=== PATIENT | female | born 1970 | race African-American/Black ===

== ENCOUNTER 2016-07-02 17:51 | Inpatient (IN) | payer MEDICAID ==
[~2016-07-02] VITALS: Ht 167.6 cm; Wt 59.4 kg
[~2016-07-02 17:51] MED LIST: ACETAMINOPHEN-1 EAC1 ORAL; ALPRAZOLAM0.25 MG ORAL; APRESOLINE50 MG ORAL; BENTYL10 MG ORAL; COLACE100 MG ORAL; HYDROCORTISON28.4 G2 TP; LISINOPRIL20 MG ORAL; NKM; NORVASC5 MG ORAL; REGLAN5 MG ORAL
[2016-07-02 17:59] VITALS: BP 224/139
[2016-07-02] MEDS ORDERED: Morphine Sulfate 4mg/ml Inj IVP ONE ×2 (18:15→21:15)
[2016-07-02 18:42] LABS: BASOPHILS % (AUTO) 1.6 % (0.0-2.0); EOSINOPHILS % (AUTO) 1.2 % (0.0-3.0); MEAN CORPUSCULAR HEMOGLOBIN 30.4 PG (27.0-31.0); MEAN CORPUSCULAR HGB CONC 33.8 G/DL (32.0-36.0); MEAN CORPUSCULAR VOLUME 90 FL (80-99); MEAN PLATELET VOLUME 6.7 FL (6.5-10.1); MONOCYTES % (AUTO) 5.9 % (1.0-10.0); NEUTROPHILS % (AUTO) 60.3 % (45.0-75.0); PLATELET COUNT 295 K/UL (150-450); RED BLOOD COUNT 4.44 M/UL (4.20-5.40); RED CELL DISTRIBUTION WIDTH 13.1 % (11.6-14.8); WHITE BLOOD COUNT 8.9 K/UL (4.8-10.8)
[2016-07-02 19:12] LABS: ALANINE AMINOTRANSFERASE 9 U/L (3-33); ALBUMIN/GLOBULIN RATIO 1.3 (1.0-2.7); ANION GAP 16 (5-15); ASPARTATE AMINO TRANSFERASE 13 U/L (5-40); CALCIUM 9.6 mg/dL (8.6-10.2); CARBON DIOXIDE 23 mEQ/L (20-30); CHLORIDE 98 mEQ/L (98-107); CREATININE 0.8 mg/dL (0.5-0.9); GLOMERULAR FILTRATION RATE > 60 mL/min (>60); HEMOLYSIS 20; LIPASE 154 U/L (< 60); POTASSIUM 3.8 mEQ/L (3.4-4.9); SODIUM 137 mEQ/L (135-145); TOTAL PROTEIN 8.3 g/dL (6.6-8.7)
[2016-07-02 19:43] LABS: APPEARANCE,URINE CLOUDY; KETONES,URINE NEGATIVE (NEGATIVE); LEUKOCYTE ESTERASE ,URINE 1+ (NEGATIVE); NITRITE,URINE NEGATIVE (NEGATIVE); PH,URINE 6 (4.5-8.0); PROTEIN,URINE NEGATIVE (NEGATIVE); UROBILINOGEN,URINE NORMAL MG/DL (0.0-1.0)
[2016-07-02 19:59] LABS: BACTERIA,URINE MODERATE /HPF; RBC,URINE 0-2 /HPF (0 - 2); SQUAMOUS EPITHELIAL CELL,UR MANY /LPF (NONE/OCC)
[2016-07-02 20:30] VITALS: BP 208/112
[2016-07-02 22:27] VITALS: BP 160/109
[2016-07-02] MEDS ORDERED: Nitroglycerin Subl 0.4mg tab (Bottle Of 25) SL PRN (22:30)
[2016-07-02] MEDS ORDERED: Mylanta II UD 30ml ORAL PRN (22:30)
[2016-07-02] MEDS ORDERED: Morphine Sulfate 2mg/ml Inj IVP PRN (22:30)
[2016-07-02] MEDS ORDERED: Miralax 17gm pkt ORAL PRN (22:30)
--- NOTE | 2016-07-02 22:35 | Emergency Room Report ---
History of Present Illness General Chief Complaint: Abdominal Pain Source: Patient, EMS Present Illness HPI 45-year-old female since ED complaining of abdominal pain. Patient states pain started today. Pain is sharp, epigastric, 10 of 10, radiating to the back. No other aggravating or relieving factors. Denies fevers chills. Denies chest pain or shortness of breath. Patient has history of pancreatitis. She states her abdomen is swollen. Denies nausea or vomiting Allergies: Coded Allergies: PENICILLIN G (Unverified Allergy, Unknown, 07/02/16) PENICILLINS (Verified Allergy, Unknown, 06/29/15) Patient History Past Medical History: HTN, asthma Past Surgical History: none Pertinent Family History: none Social History: Denies: alcohol use, drug use, smoking Last Menstrual Period: 05/16/16 Now: No Immunizations: UTD Reviewed Nursing Documentation: PMH: Agreed, PSxH: Agreed Nursing Documentation-PMH Past Medical History: No History, Except For Hx Cardiac Problems: Yes Hx Hypertension: Yes Hx Asthma: Yes Hx Cancer: No Hx Neurological Problems: No Review of Systems All Other Systems: negative except mentioned in HPI Physical Exam Vital Signs Date Time Temp Pulse Resp B/P Pulse Ox O2 Delivery O2 Flow Rate FiO2 07/02/16 17:46 96.3 92 16 204/177 100 Room Air Sp02 EP Interpretation: reviewed, normal General Appearance: no apparent distress, alert, GCS 15, non-toxic Head: normocephalic, atraumatic Eyes: bilateral eye PERRL, bilateral eye normal inspection ENT: hearing grossly normal, normal pharynx, no angioedema, normal voice Neck: full range of motion, supple/symm/no masses Respiratory: chest non-tender, lungs clear, normal breath sounds, speaking full sentences Cardiovascular #1: regular rate, rhythm, no edema Cardiovascular #2: 2+ carotid (R), 2+ carotid (L), 2+ radial (R), 2+ radial (L) , 2+ dorsalis pedis (R), 2+ dorsalis pedis (L) Gastrointestinal: normal bowel sounds, soft, no rebound, distended, tenderness Rectal: deferred Genitourinary: normal inspection, no CVA tenderness Musculoskeletal: back normal, gait/station normal, normal range of motion, non- tender Neurologic: alert, oriented x3, responsive, motor strength/tone normal, sensory intact, speech normal Psychiatric: judgement/insight normal, memory normal, mood/affect normal, no suicidal/homicidal ideation Reflexes: 3+ bicep (R), 3+ bicep (L), 3+ tricep (R), 3+ tricep (L), 3+ knee (R) , 3+ knee (L) Skin: normal color, no rash, warm/dry, well hydrated Lymphatic: no adenopathy Medical Decision Making Diagnostic Impression: Primary Impression: Pancreatitis Qualified Codes: K85.90 - Acute pancreatitis without necrosis or infection, unspecified Additional Impression: Hypertension Qualified Codes: I15.9 - Secondary hypertension, unspecified ER Course Hospital Course 45-year-old female presents to ED with abdominal pain Differential diagnoses include: BPH, cystitis, pyelonephritis, kidney stone Clinical course Patient placed on stretcher. ekg monitor. After initial history and physical I ordered labs, IV fluids, UA, pain medication and CT scan Labs - no leukocytosis, Hb/Hct stable. electrolytes ok. Lipase > 154 CT abdomen and pelvis - no acute process patient BP elevated; improved with hydraalzine Case discussed with Dr. Thompson and he agreed to accept the patient to his service for further care and support I feel this is a highly complex case requiring extensive working including EKG/ Rhythm strip, Xray/CT/US, Blood/urine lab work, repeat exams while in ED, and administration of strong opiates/narcotics for pain control, admission to hospital or close patient follow up. Diagnosis - acute pancreatitis Patient admitted to floor in serious condition Labs Test 07/02/16 18:26 07/02/16 19:06 White Blood Count 8.9 K/UL (4.8-10.8) Red Blood Count 4.44 M/UL (4.20-5.40) Hemoglobin 13.5 G/DL (12.0-16.0) Hematocrit 39.9 % (37.0-47.0) Mean Corpuscular Volume 90 FL (80-99) Mean Corpuscular Hemoglobin 30.4 PG (27.0-31.0) Mean Corpuscular Hemoglobin Concent 33.8 G/DL (32.0-36.0) Red Cell Distribution Width 13.1 % (11.6-14.8) Platelet Count 295 K/UL (150-450) Mean Platelet Volume 6.7 FL (6.5-10.1) Neutrophils (%) (Auto) 60.3 % (45.0-75.0) Lymphocytes (%) (Auto) 31.0 % (20.0-45.0) Monocytes (%) (Auto) 5.9 % (1.0-10.0) Eosinophils (%) (Auto) 1.2 % (0.0-3.0) Basophils (%) (Auto) 1.6 % (0.0-2.0) Sodium Level 137 mEQ/L (135-145) Potassium Level 3.8 mEQ/L (3.4-4.9) Chloride Level 98 mEQ/L (98-107) Carbon Dioxide Level 23 mEQ/L (20-30) Anion Gap 16 (5-15) Blood Urea Nitrogen 10 mg/dL (7-23) Creatinine 0.8 mg/dL (0.5-0.9) Estimat Glomerular Filtration Rate > 60 mL/min (>60) Glucose Level 122 mg/dL (74-106) Calcium Level 9.6 mg/dL (8.6-10.2) Total Bilirubin < 0.2 mg/dL (0.0-1.2) Aspartate Amino Transf (AST/SGOT) 13 U/L (5-40) Alanine Aminotransferase (ALT/SGPT) 9 U/L (3-33) Alkaline Phosphatase 70 U/L (35-104) Total Protein 8.3 g/dL (6.6-8.7) Albumin 4.7 g/dL (3.5-5.2) Globulin 3.6 g/dL Albumin/Globulin Ratio 1.3 (1.0-2.7) Lipase 154 U/L (< 60) Urine Color Pale yellow Urine Appearance Cloudy Urine pH 6 (4.5-8.0) Urine Specific [place] 1.025 (1.005-1.035) Urine Protein Negative (NEGATIVE) Urine Glucose (UA) Negative (NEGATIVE) Urine Ketones Negative (NEGATIVE) Urine Occult Blood Negative (NEGATIVE) Urine Nitrite Negative (NEGATIVE) Urine Bilirubin Negative (NEGATIVE) Urine Urobilinogen Normal MG/DL (0.0-1.0) Urine Leukocyte Esterase 1+ (NEGATIVE) Urine RBC 0-2 /HPF (0 - 2) Urine WBC 2-4 /HPF (0 - 2) Urine Squamous Epithelial Cells Many /LPF (NONE/OCC) Urine Bacteria Moderate /HPF (NONE) CT/MRI/US Diagnostic Results CT/MRI/US Diagnostic Results : Imaging Test Ordered: CT A/P Impression no acute process Last Vital Signs Date Time Temp Pulse Resp B/P Pulse Ox O2 Delivery O2 Flow Rate FiO2 07/02/16 22:11 198/138 07/02/16 21:44 98.8 07/02/16 20:30 65 18 100 Room Air Status: improved Disposition: ADMITTED INPATIENT Condition: Serious Referrals: [facility],REFERRING (PCP) CLARA ARORA M.D. Jul 02, 2016 22:35
[2016-07-02] MEDS ORDERED: HYDROmorphone 1mg/ml Carpuject IVP ONE (23:00)
[2016-07-03] VITALS: BP_SYST 155; BP_SYST 184; BP_DIAS 93; BP_DIAS 97
[2016-07-03] MEDS: ALPRAZolam 0.25mg tab ORAL PRN ×2 (00:44→08:11)
[2016-07-03] MEDS: D5 1/2NS 1,000 ML IV SCH ×3 (00:44→11:54)
[2016-07-03] MEDS: HydrALAZINE 50mg tab ORAL SCH ×5 (00:44→21:05)
[2016-07-03 04:00] VITALS: BP 164/100
--- NOTE | 2016-07-03 07:20 | History and Physical ---
History of Present Illness General Date patient seen: Jul 03, 2016 Time patient seen: 07:10 Reason for Hospitalization: Abdominal Pain Present Illness HPI 45 y/old female came to ED c/o sharp, radiating to the back abdominal pain, rated 7/10 on a scale 1 to 10 Reported that her abdomen swollen denies fevers, chills denies n/v/diarrhea no CP, no SOB no [id number] trauma, injury patient reported hx of pancreatitis in the past workup in ED revealed no leukocytoses, stable lytes, lipase 154 CT AP revealed acute pancreatitis, no pseudocyst, no abscess, no necrosis, non = dilated GB, fibroid uterus patient was medicated for pain patient was transferred to [facility] floor for further management Allergies: Coded Allergies: PENICILLIN G (Unverified Allergy, Unknown, 07/02/16) PENICILLINS (Verified Allergy, Unknown, 06/29/15) Medication History Scheduled Amlodipine Besylate (Norvasc), 10 MG ORAL DAILY Docusate Sodium* (Colace*), 100 MG ORAL TWICE A DAY Hydralazine HCl (Hydralazine HCl), 25 MG ORAL Q6HR Hydrocortisone/Aloe Vera (Hydrocortisone Plus 1% Cream), 28.4 GM TP BID Lisinopril (Lisinopril*), 40 MG ORAL DAILY No Known Medications* (NKM - No Known Medications*), 0 ., (Reported) Scheduled PRN Acetaminophen With Codeine (T#3) (Tylenol #3 Tab*), 1 TAB ORAL Q6HR PRN for For Pain Alprazolam* (Xanax*), 0.25 MG ORAL THREE TIMES A DAY PRN for anxiety Dicyclomine Hcl* (Bentyl*), 10 MG ORAL FOUR TIMES A DAY PRN Metoclopramide Hcl* (Reglan*), 5 MG ORAL EVERY 6 HOURS PRN Patient History Healthcare decision maker self Resuscitation status Full Code Advanced Directive on File No Past Medical/Surgical History Past Medical/Surgical History: (1) Smoker (2) Pancreatitis (3) Hypertension (4) Anemia Review of Systems Constitutional: Reports: malaise Eye: Reports: no symptoms ENT: Reports: no symptoms Respiratory: Reports: other - asthma mild Cardiovascular: Reports: other - HTN Gastrointestinal: Reports: see HPI Genitourinary: Reports: other - hx of UTI Musculoskeletal: Reports: no symptoms Psychiatric: Reports: no symptoms Neurological: Reports: no symptoms Endocrine: Reports: no symptoms Physical Exam General Appearance: WD/WN, no apparent distress, alert Lines, tubes and drains: peripheral HEENT: normocephalic, atraumatic, anicteric Neck: non-tender, supple Respiratory/Chest: chest wall non-tender, lungs clear, normal breath sounds, no respiratory distress Cardiovascular/Chest: normal peripheral pulses, normal rate, regular rhythm, no JVD Abdomen: normal bowel sounds, soft - TTP RUQ, less LUQ, no rebound, no guarding , no organomegaly Extremities: normal range of motion, non-tender, no calf tenderness, normal capillary refill 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, no motor/sensory deficits, alert, oriented x 3, responsive, normal mood/affect Musculoskeletal: normal muscle bulk Last 24 Hour Vital Signs Date Time Temp Pulse Resp B/P Pulse Ox O2 Delivery O2 Flow Rate FiO2 07/03/16 04:55 160/100 07/03/16 04:00 97.7 95 19 164/100 100 Room Air 07/03/16 00:44 187/109 07/03/16 00:00 97.3 96 21 155/93 98 Room Air 07/03/16 00:00 97.3 104 19 184/97 98 Room Air 07/02/16 23:06 98.8 82 16 160/109 100 Room Air 07/02/16 22:27 98.8 82 16 160/109 100 Room Air 07/02/16 22:11 198/138 07/02/16 21:44 98.8 07/02/16 20:30 98.8 65 18 208/112 100 Room Air 07/02/16 17:59 98.8 93 25 224/139 100 Room Air 07/02/16 17:46 96.3 92 16 204/177 100 Room Air Intake and Output 07/02/16 07/03/16 18:59 06:59 Output Total 100 ml Balance -100 ml Output Urine Total 100 ml # Voids 8 Laboratory Tests Test 07/02/16 18:26 07/02/16 19:06 White Blood Count 8.9 K/UL (4.8-10.8) Red Blood Count 4.44 M/UL (4.20-5.40) Hemoglobin 13.5 G/DL (12.0-16.0) Hematocrit 39.9 % (37.0-47.0) Mean Corpuscular Volume 90 FL (80-99) Mean Corpuscular Hemoglobin 30.4 PG (27.0-31.0) Mean Corpuscular Hemoglobin Concent 33.8 G/DL (32.0-36.0) Red Cell Distribution Width 13.1 % (11.6-14.8) Platelet Count 295 K/UL (150-450) Mean Platelet Volume 6.7 FL (6.5-10.1) Neutrophils (%) (Auto) 60.3 % (45.0-75.0) Lymphocytes (%) (Auto) 31.0 % (20.0-45.0) Monocytes (%) (Auto) 5.9 % (1.0-10.0) Eosinophils (%) (Auto) 1.2 % (0.0-3.0) Basophils (%) (Auto) 1.6 % (0.0-2.0) Sodium Level 137 mEQ/L (135-145) Potassium Level 3.8 mEQ/L (3.4-4.9) Chloride Level 98 mEQ/L (98-107) Carbon Dioxide Level 23 mEQ/L (20-30) Anion Gap 16 (5-15) H Blood Urea Nitrogen 10 mg/dL (7-23) Creatinine 0.8 mg/dL (0.5-0.9) Estimat Glomerular Filtration Rate > 60 mL/min (>60) Glucose Level 122 mg/dL (74-106) H Calcium Level 9.6 mg/dL (8.6-10.2) Total Bilirubin < 0.2 mg/dL (0.0-1.2) Aspartate Amino Transf (AST/SGOT) 13 U/L (5-40) Alanine Aminotransferase (ALT/SGPT) 9 U/L (3-33) Alkaline Phosphatase 70 U/L (35-104) Total Protein 8.3 g/dL (6.6-8.7) Albumin 4.7 g/dL (3.5-5.2) Globulin 3.6 g/dL Albumin/Globulin Ratio 1.3 (1.0-2.7) Lipase 154 U/L (< 60) H Urine Color Pale yellow Urine Appearance Cloudy Urine pH 6 (4.5-8.0) Urine Specific [place] 1.025 (1.005-1.035) Urine Protein Negative (NEGATIVE) Urine Glucose (UA) Negative (NEGATIVE) Urine Ketones Negative (NEGATIVE) Urine Occult Blood Negative (NEGATIVE) Urine Nitrite Negative (NEGATIVE) Urine Bilirubin Negative (NEGATIVE) Urine Urobilinogen Normal MG/DL (0.0-1.0) Urine Leukocyte Esterase 1+ (NEGATIVE) H Urine RBC 0-2 /HPF (0 - 2) Urine WBC 2-4 /HPF (0 - 2) Urine Squamous Epithelial Cells Many /LPF (NONE/OCC) H Urine Bacteria Moderate /HPF (NONE) H Height (Feet): 5 Height (Inches): 6.00 Weight (Pounds): 131 Medications Current Medications Medications (Trade) Dose Ordered Sig/Fátima Route PRN Reason Start Time Stop Time Status Last Admin Dose Admin Acetaminophen (Tylenol) 650 mg Q4H PRN ORAL fever 07/02/16 22:30 08/01/16 22:29 Al Hydroxide/Mg Hydroxide (Mylanta II) 30 ml Q6H PRN ORAL dyspepsia 07/02/16 22:30 08/01/16 22:29 Alprazolam (Xanax) 0.25 mg THREE TIMES A DAY PRN ORAL anxiety 07/02/16 22:30 07/09/16 22:29 07/03/16 00:44 Amlodipine Besylate (Norvasc) 10 mg DAILY ORAL 07/03/16 09:00 08/02/16 08:59 Dextrose (Dextrose 50%) STAT PRN IV Hypoglycemia 07/02/16 22:30 08/01/16 22:29 Dextrose/Sodium Chloride (D5 0.45% NS) 1,000 ml @ 75 mls/hr [id number] IV 07/02/16 17:40 08/01/16 17:39 07/03/16 00:44 Diphenhydramine HCl (Benadryl) 25 mg Q6H PRN ORAL Itching/Pruritis 07/02/16 22:30 08/01/16 22:29 Heparin Sodium (Porcine) (Heparin 5000 units/ml) 5,000 units EVERY 12 HOURS SUBQ 07/03/16 09:00 08/02/16 08:59 Hydralazine HCl (Apresoline) 25 mg Q6HR ORAL 07/03/16 00:00 08/02/16 00:00 07/03/16 04:55 Lisinopril 40 mg 40 mg DAILY ORAL 07/03/16 09:00 08/02/16 08:59 Morphine Sulfate (Morphine Sulfate) 2 mg EVERY 4 HOURS PRN IVP severe Pain (Pain Scale 7-10) 07/02/16 22:30 07/09/16 22:29 07/03/16 04:56 Nitroglycerin (Ntg) 0.4 mg Q5M X 3 DOSES PRN SL Prn Chest Pain 07/02/16 22:30 08/01/16 22:29 Ondansetron HCl (Zofran) 4 mg Q6H PRN IVP Nausea & Vomiting 07/02/16 22:30 08/01/16 22:29 Polyethylene Glycol (Miralax) 17 gm HSPRN PRN ORAL Constipation 07/02/16 22:30 08/01/16 22:29 Temazepam (Restoril) 15 mg HSPRN PRN ORAL Insomnia 07/02/16 22:30 07/09/16 22:29 Assessment/Plan Assessment/Plan ASSESSMENT acute pancreatitis abdominal pain ? hx of chronic pancreatitis HTN emergency PLAN OF CARE [facility] floor IVF NPO initially, start on CL ( discussed with GI) , monitor tolerance and advance as tolerated pain management trend lipase amylase GI consult BP management with multiple regimen: RADHA, CCB and Hydralazine, not controlled since initial presentation, increase Hydralazine dose ( already on max Norvasc and Lisinopril) , add Clonidine prn urine drug screen on awake counselor to stop smoking DVT prophylaxis bowel regimen case discussed and evaluated [facility] superv[facility]Laura NP Jul 03, 2016 07:20
[2016-07-03 08:00] VITALS: BP 172/110
[2016-07-03] MEDS ORDERED: Morphine Sulfate 2mg/ml Inj IVP PRN (08:00)
[2016-07-03] MEDS: Lisinopril 20mg tab ORAL SCH (08:12)
[2016-07-03] MEDS: Heparin 5000 units/ml inj SUBQ SCH ×2 (08:21→21:10)
--- NOTE | 2016-07-03 08:53 | General Progress Note ---
Assessment/Plan Problem List: (1) Pancreatitis ICD Codes: K85.9 - Acute pancreatitis, unspecified SNOMED: 96699749 Qualifiers: Qualified Codes: K85.90 - Acute pancreatitis without necrosis or infection, unspecified (2) ETOH abuse ICD Codes: F10.10 - Alcohol abuse, uncomplicated SNOMED: 54378978, 08657935 Assessment/Plan iv fluids pain control fu labs thiamine fu final ct clears Subjective ROS Limited/Unobtainable: Yes Allergies: Coded Allergies: PENICILLIN G (Unverified Allergy, Unknown, 07/02/16) PENICILLINS (Verified Allergy, Unknown, 06/29/15) Subjective abd pain Objective Last 24 Hour Vital Signs Date Time Temp Pulse Resp B/P Pulse Ox O2 Delivery O2 Flow Rate FiO2 07/03/16 08:12 160/100 07/03/16 08:11 95 160/100 07/03/16 04:55 160/100 07/03/16 04:00 97.7 95 19 164/100 100 Room Air 07/03/16 00:44 187/109 07/03/16 00:00 97.3 96 21 155/93 98 Room Air 07/03/16 00:00 97.3 104 19 184/97 98 Room Air 07/02/16 23:06 98.8 82 16 160/109 100 Room Air 07/02/16 22:27 98.8 82 16 160/109 100 Room Air 07/02/16 22:11 198/138 07/02/16 21:44 98.8 07/02/16 20:30 98.8 65 18 208/112 100 Room Air 07/02/16 17:59 98.8 93 25 224/139 100 Room Air 07/02/16 17:46 96.3 92 16 204/177 100 Room Air Intake and Output 07/02/16 07/03/16 18:59 06:59 Output Total 100 ml Balance -100 ml Output Urine Total 100 ml # Voids 8 Laboratory Tests 07/02/16 18:26: White Blood Count 8.9, Red Blood Count 4.44, Hemoglobin 13.5, Hematocrit 39.9, Mean Corpuscular Volume 90, Mean Corpuscular Hemoglobin 30.4, Mean Corpuscular Hemoglobin Concent 33.8, Red Cell Distribution Width 13.1, Platelet Count 295, Mean Platelet Volume 6.7, Neutrophils (%) (Auto) 60.3, Lymphocytes (%) (Auto) 31.0, Monocytes (%) (Auto) 5.9, Eosinophils (%) (Auto) 1.2, Basophils (%) (Auto ) 1.6, Sodium Level 137, Potassium Level 3.8, Chloride Level 98, Carbon Dioxide Level 23, Anion Gap 16H, Blood Urea Nitrogen 10, Creatinine 0.8, Estimat Glomerular Filtration Rate > 60, Glucose Level 122H, Calcium Level 9.6, Total Bilirubin < 0.2, Aspartate Amino Transf (AST/SGOT) 13, Alanine Aminotransferase (ALT/SGPT) 9, Alkaline Phosphatase 70, Total Protein 8.3, Albumin 4.7, Globulin 3.6, Albumin/Globulin Ratio 1.3, Lipase 154H 07/02/16 19:06: Urine Color Pale yellow, Urine Appearance Cloudy, Urine pH 6, Urine Specific [place] 1.025, Urine Protein Negative, Urine Glucose (UA) Negative, Urine Ketones Negative, Urine Occult Blood Negative, Urine Nitrite Negative, Urine Bilirubin Negative, Urine Urobilinogen Normal, Urine Leukocyte Esterase 1+H, Urine RBC 0-2, Urine WBC 2-4, Urine Squamous Epithelial Cells ManyH, Urine Bacteria ModerateH Height (Feet): 5 Height (Inches): 6.00 Weight (Pounds): 131 General Appearance: alert EENT: normal ENT inspection Neck: supple Cardiovascular: normal rate Respiratory/Chest: lungs clear Abdomen: soft, tender Extremities: non-tender SUSANA ANDREW Jul 03, 2016 08:53
--- NOTE | 2016-07-03 09:25 | Diagnostic Imaging Report ---
Indication: Abdominal pain Technique: CT of the abdomen and pelvis utilizing automated exposure control with intravenous and oral contrast. Venous scanning performed. CT dose: Total DLP 955 mGycm; CTDI vol 18.2 mGy Comparison: None Findings: Lung bases are clear. Liver, adrenal glands, kidneys and spleen. No CT evident gallstones are seen. There is trace apparent stranding adjacent to the pancreatic head. The small bowel loops are normal in caliber. There is no appendicitis. A few colonic diverticula are noted. Multiple uterine masses are seen measuring up to 5.5 cm. Bladder is grossly unremarkable. Atherosclerotic changes are seen. The abdominal aorta is normal in caliber. Degenerative changes of the spine are noted. Impression: Questionable trace stranding adjacent to the pancreatic head. Correlation with pancreatic enzymes recommended as subtle pancreatitis not completely excluded. Followup as indicated. Uterine masses suggestive of fibroids. Correlation with ultrasound recommended as indicated. Atherosclerotic changes. Other findings as above. Findings discussed with Dr. Culver 07/03/16 at [address] scanner at [facility] is accredited by the [employer] and the scans are performed using protocols designed to limit radiation exposure to as low as reasonably achievable to attain images of sufficient resolution adequate for diagnostic evaluation.
[2016-07-03] MEDS ORDERED: Morphine Sulfate 4mg/ml Inj IVP PRN (10:45)
[2016-07-03] MEDS ORDERED: Morphine Sulfate 2mg/ml Inj IVP ONE (10:45)
[2016-07-03 11:40] LABS: EOSINOPHILS % (AUTO) 0.3 % (0.0-3.0); MEAN CORPUSCULAR HEMOGLOBIN 29.7 PG (27.0-31.0); MEAN CORPUSCULAR HGB CONC 32.9 G/DL (32.0-36.0); MEAN CORPUSCULAR VOLUME 90 FL (80-99); MEAN PLATELET VOLUME 6.9 FL (6.5-10.1); MONOCYTES % (AUTO) 4.4 % (1.0-10.0); NEUTROPHILS % (AUTO) 79.3 % (45.0-75.0); PLATELET COUNT 310 K/UL (150-450); RED BLOOD COUNT 4.58 M/UL (4.20-5.40); WHITE BLOOD COUNT 11.1 K/UL (4.8-10.8)
[2016-07-03 12:00] VITALS: BP 162/101
[2016-07-03 12:05] LABS: ALANINE AMINOTRANSFERASE 10 U/L (3-33); AMYLASE 121 U/L (10-110); ANION GAP 17 (5-15); ASPARTATE AMINO TRANSFERASE 13 U/L (5-40); CALCIUM 9.2 mg/dL (8.6-10.2); CARBON DIOXIDE 20 mEQ/L (20-30); CHLORIDE 102 mEQ/L (98-107); CREATININE 0.7 mg/dL (0.5-0.9); GLOMERULAR FILTRATION RATE > 60 mL/min (>60); HEMOLYSIS 4; LIPASE 131 U/L (< 60); POTASSIUM 3.9 mEQ/L (3.4-4.9); SODIUM 139 mEQ/L (135-145); TOTAL PROTEIN 7.9 g/dL (6.6-8.7)
[2016-07-03 16:00] VITALS: BP 155/98
[2016-07-03 20:00] VITALS: BP 167/108
[2016-07-04] VITALS: BP 155/104
[2016-07-04 04:00] VITALS: BP 150/103
[2016-07-04] MEDS: HydrALAZINE 50mg tab ORAL SCH ×3 (05:39→21:46)
[2016-07-04] MEDS: D5 1/2NS 1,000 ML IV SCH ×2 (06:12→19:43)
[2016-07-04 07:57] VITALS: BP 157/92
[2016-07-04 07:57] LABS: CHOLESTEROL/HDL RATIO 3.4 (3.3-4.4)
[2016-07-04] MEDS: Lisinopril 20mg tab ORAL SCH (08:20)
[2016-07-04] MEDS: Heparin 5000 units/ml inj SUBQ SCH ×2 (08:27→21:47)
[2016-07-04] MEDS: DiphenhydrAMINE & Zinc 28g Cream TOPIC PRN ×2 (10:41→21:48)
[2016-07-04 12:05] VITALS: BP 166/98
--- NOTE | 2016-07-04 12:13 | GI Progress Note ---
Assessment/Plan Problems: (1) ETOH abuse ICD Codes: F10.10 - Alcohol abuse, uncomplicated SNOMED: 58461724, 22738815 (2) Anemia ICD Codes: D64.9 - Anemia, unspecified SNOMED: 065518989 (3) Hypertension ICD Codes: I10 - Essential (primary) hypertension SNOMED: 52170269 Qualifiers: Qualified Codes: I15.9 - Secondary hypertension, unspecified (4) Pancreatitis ICD Codes: K85.9 - Acute pancreatitis, unspecified SNOMED: 39878906 Qualifiers: Qualified Codes: K85.90 - Acute pancreatitis without necrosis or infection, unspecified (5) Constipation ICD Codes: K59.00 - Constipation, unspecified SNOMED: 42664738 (6) Abdominal pain ICD Codes: R10.9 - Unspecified abdominal pain SNOMED: 47868576, 574015252 Status: stable Status Narrative Discussed with Dr. Epperson. Assessment/Plan ok for DC per GI standpoint lipase WNL adv regular diet after U/S iv fluids pain control fu labs Subjective Gastrointestinal/Abdominal: Reports: abdominal pain Objective Last 24 Hour Vital Signs Date Time Temp Pulse Resp B/P Pulse Ox O2 Delivery O2 Flow Rate FiO2 07/04/16 12:05 97.0 109 18 166/98 96 Room Air 07/04/16 08:20 157/92 07/04/16 08:19 112 157/92 07/04/16 07:57 97.0 112 18 157/92 97 Room Air 07/04/16 07:38 97.3 07/04/16 05:39 159/103 07/04/16 04:00 97.3 87 18 150/103 99 Room Air 07/04/16 00:00 97.5 101 18 155/104 98 Room Air 07/03/16 21:05 167/108 07/03/16 20:00 97.3 108 20 167/108 100 Room Air 07/03/16 16:00 97.9 100 20 155/98 100 Room Air 07/03/16 14:00 162/101 07/03/16 12:34 162/101 Intake and Output 07/03/16 07/04/16 19:00 07:00 Intake Total 840 ml 850 ml Output Total 400 ml Balance 840 ml 450 ml Intake Oral 240 ml 100 ml IV Total 600 ml 750 ml Output Urine Total 400 ml # Voids 2 2 Laboratory Tests Test 07/04/16 05:00 07/04/16 06:00 Urine Opiates Screen Positive (NEGATIVE) H Urine Barbiturates Screen Negative (NEGATIVE) Phencyclidine (PCP) Screen Negative (NEGATIVE) Urine Amphetamines Screen Negative (NEGATIVE) Urine Benzodiazepines Screen Positive (NEGATIVE) H Urine Cocaine Screen Negative (NEGATIVE) Urine Marijuana (THC) Screen Positive (NEGATIVE) H Triglycerides Level 98 mg/dL (< 150) Cholesterol Level 126 mg/dL (< 200) LDL Cholesterol 69 mg/dL (60-99) HDL Cholesterol 37 mg/dL (> 60) Cholesterol/HDL Ratio 3.4 (3.3-4.4) Amylase Level 86 U/L (10-110) Lipase 60 U/L (< 60) Height (Feet): 5 Height (Inches): 6.00 Weight (Pounds): 131 General Appearance: alert Cardiovascular: normal rate, tachycardia Respiratory/Chest: normal breath sounds, no respiratory distress Abdominal Exam: normal bowel sounds, non tender, soft Extremities: normal range of motion Monique Dc N.P. Jul 04, 2016 12:13
--- NOTE | 2016-07-04 15:01 | Diagnostic Imaging Report ---
Indication:Abdominal pain Technique: Grayscale and duplex Doppler imaging of the abdomen performed. Comparison: None Findings: The liver, demonstrated part of the pancreas, gallbladder, aorta and IVC, both kidneys, spleen appear unremarkable. There is no biliary ductal dilatation identified. CBD is between 4 and 5 mm in diameter. Doppler evaluation of the main portal vein shows patency. There is no ascites. No hydronephrosis seen. Impression: Negative abdominal ultrasound.
[2016-07-04 16:09] VITALS: BP 177/113
--- NOTE | 2016-07-04 17:20 | Pulmonology Progress Note ---
Assessment/Plan Problems: (1) Pancreatitis (2) Hypertension (3) ETOH abuse Assessment/Plan start diet pain control dc home in am Subjective ROS Limited/Unobtainable: No Constitutional: Reports: no symptoms HEENT: Repors: no symptoms Respiratory: Reports: no symptoms Cardiovascular: Reports: no symptoms Gastrointestinal/Abdominal: Reports: no symptoms Allergies: Coded Allergies: PENICILLIN G (Unverified Allergy, Unknown, 07/02/16) PENICILLINS (Verified Allergy, Unknown, 06/29/15) Objective Last 24 Hour Vital Signs Date Time Temp Pulse Resp B/P Pulse Ox O2 Delivery O2 Flow Rate FiO2 07/04/16 16:09 98.2 114 19 177/113 100 Room Air 07/04/16 16:03 177/113 07/04/16 15:38 97.0 07/04/16 14:24 166/90 07/04/16 12:05 97.0 109 18 166/98 96 Room Air 07/04/16 08:20 157/92 07/04/16 08:19 112 157/92 07/04/16 07:57 97.0 112 18 157/92 97 Room Air 07/04/16 05:39 159/103 07/04/16 04:00 97.3 87 18 150/103 99 Room Air 07/04/16 00:00 97.5 101 18 155/104 98 Room Air 07/03/16 21:05 167/108 07/03/16 20:00 97.3 108 20 167/108 100 Room Air Intake and Output 07/03/16 07/04/16 19:00 07:00 Intake Total 840 ml 850 ml Output Total 400 ml Balance 840 ml 450 ml Intake Oral 240 ml 100 ml IV Total 600 ml 750 ml Output Urine Total 400 ml # Voids 2 2 General Appearance: WD/WN HEENT: normocephalic, atraumatic Respiratory/Chest: chest wall non-tender, lungs clear Cardiovascular: normal peripheral pulses, normal rate Abdomen: normal bowel sounds, no organomegaly Extremities: no cyanosis Skin: no rash Microbiology Date/Time Source Procedure Growth Status 07/02/16 19:06 Urine,Clean Catch Urine Culture - Final Mixed Gram Positive Organism Complete Laboratory Tests 07/04/16 05:00: Urine Opiates Screen PositiveH, Urine Barbiturates Screen Negative, Phencyclidine (PCP) Screen Negative, Urine Amphetamines Screen Negative, Urine Benzodiazepines Screen PositiveH, Urine Cocaine Screen Negative, Urine Marijuana (THC) Screen PositiveH 07/04/16 06:00: Triglycerides Level 98, Cholesterol Level 126, LDL Cholesterol 69, HDL Cholesterol 37, Cholesterol/HDL Ratio 3.4, Amylase Level 86, Lipase 60 Current Medications Medications (Trade) Dose Ordered Sig/Fátima Route PRN Reason Start Time Stop Time Status Last Admin Dose Admin Acetaminophen (Tylenol) 650 mg Q4H PRN ORAL fever 07/02/16 22:30 08/01/16 22:29 Al Hydroxide/Mg Hydroxide (Mylanta II) 30 ml Q6H PRN ORAL dyspepsia 07/02/16 22:30 08/01/16 22:29 Alprazolam (Xanax) 0.25 mg THREE TIMES A DAY PRN ORAL anxiety 07/02/16 22:30 07/09/16 22:29 07/03/16 08:11 Amlodipine Besylate (Norvasc) 10 mg DAILY ORAL 07/03/16 09:00 08/02/16 08:59 07/04/16 08:19 Clonidine HCl (Catapres) 0.1 mg Q8H PRN ORAL sbp above 160 07/03/16 09:15 08/02/16 09:14 07/04/16 16:03 Dextrose (Dextrose 50%) STAT PRN IV Hypoglycemia 07/02/16 22:30 08/01/16 22:29 Dextrose/Sodium Chloride (D5 0.45% NS) 1,000 ml @ 75 mls/hr [id number] IV 07/02/16 17:40 08/01/16 17:39 07/04/16 06:12 Diphenhydramine HCl (Benadryl Cream) 1 applic THREE TIMES A DAY PRN TOPIC Itching 07/04/16 09:00 08/03/16 08:59 07/04/16 10:41 Diphenhydramine HCl (Benadryl) 25 mg Q6H PRN ORAL Itching/Pruritis 07/02/16 22:30 08/01/16 22:29 Heparin Sodium (Porcine) (Heparin 5000 units/ml) 5,000 units EVERY 12 HOURS SUBQ 07/03/16 09:00 08/02/16 08:59 07/04/16 08:27 Hydralazine HCl (Apresoline) 50 mg Q8HR ORAL 07/03/16 14:00 08/02/16 13:59 07/04/16 14:24 Hydromorphone HCl (Dilaudid) 2 mg Q4H PRN IVP For Pain 07/03/16 11:00 07/10/16 10:59 07/04/16 15:07 Lisinopril 40 mg 40 mg DAILY ORAL 07/03/16 09:00 08/02/16 08:59 07/04/16 08:20 Nitroglycerin (Ntg) 0.4 mg Q5M X 3 DOSES PRN SL Prn Chest Pain 07/02/16 22:30 08/01/16 22:29 Ondansetron HCl (Zofran) 4 mg Q6H PRN IVP Nausea & Vomiting 07/02/16 22:30 08/01/16 22:29 07/04/16 10:36 Polyethylene Glycol (Miralax) 17 gm HSPRN PRN ORAL Constipation 07/02/16 22:30 08/01/16 22:29 Temazepam (Restoril) 15 mg HSPRN PRN ORAL Insomnia 07/02/16 22:30 07/09/16 22:29 GIOVANNI SCHILLING Jul 04, 2016 17:20
[2016-07-04] MEDS: ALPRAZolam 0.25mg tab ORAL PRN (18:16)
[2016-07-04 20:00] VITALS: BP 156/101
[2016-07-05] VITALS (8 sets, daily range): BP systolic 154–181; BP diastolic 93–120
[2016-07-05] MEDS: HydrALAZINE 50mg tab ORAL SCH ×3 (06:13→20:02)
[2016-07-05] MEDS: D5 1/2NS 1,000 ML IV SCH (06:18)
[2016-07-05] MEDS: Lisinopril 20mg tab ORAL SCH (08:31)
[2016-07-05] MEDS: Heparin 5000 units/ml inj SUBQ SCH ×2 (08:35→20:04)
--- NOTE | 2016-07-05 13:42 | GI Progress Note ---
Assessment/Plan Problems: (1) ETOH abuse ICD Codes: F10.10 - Alcohol abuse, uncomplicated SNOMED: 70739707, 45589544 (2) Anemia ICD Codes: D64.9 - Anemia, unspecified SNOMED: 859469240 (3) Hypertension ICD Codes: I10 - Essential (primary) hypertension SNOMED: 41616988 Qualifiers: Qualified Codes: I15.9 - Secondary hypertension, unspecified (4) Pancreatitis ICD Codes: K85.9 - Acute pancreatitis, unspecified SNOMED: 18468319 Qualifiers: Qualified Codes: K85.90 - Acute pancreatitis without necrosis or infection, unspecified (5) Constipation ICD Codes: K59.00 - Constipation, unspecified SNOMED: 72877723 (6) Abdominal pain ICD Codes: R10.9 - Unspecified abdominal pain SNOMED: 14846263, 100060683 Status: stable Status Narrative Discussed with Dr. Epperson. Assessment/Plan ok for DC per GI standpoint lipase WNL regular diet tolerating iv fluids pain control fu labs fu with PCP for BP mgmt Subjective Gastrointestinal/Abdominal: Reports: abdominal pain Subjective utox positive for benzo + amp >> per patient she had taken sleeping pills to relieve her pain Objective Last 24 Hour Vital Signs Date Time Temp Pulse Resp B/P Pulse Ox O2 Delivery O2 Flow Rate FiO2 07/05/16 13:29 181/120 07/05/16 12:15 181/120 07/05/16 12:00 99.0 114 20 181/120 99 Room Air 07/05/16 08:31 158/98 07/05/16 08:30 103 158/98 07/05/16 08:00 98.1 103 20 158/98 99 Room Air 07/05/16 06:13 168/88 07/05/16 04:00 97.0 94 18 168/109 99 Room Air 07/05/16 00:00 98.4 99 18 160/93 99 Room Air 07/04/16 21:48 97.0 07/04/16 21:46 156/101 07/04/16 20:00 97.0 108 20 156/101 100 Room Air 07/04/16 16:09 98.2 114 19 177/113 100 Room Air 07/04/16 16:03 177/113 07/04/16 14:24 166/90 Intake and Output 07/04/16 07/05/16 19:00 07:00 Intake Total 900 ml 1155 ml Output Total 450 ml Balance 450 ml 1155 ml Intake Oral 480 ml IV Total 900 ml 675 ml Output Urine Total 400 ml Emesis 50 ml # Voids 3 Height (Feet): 5 Height (Inches): 6.00 Weight (Pounds): 131 General Appearance: no apparent distress, alert Cardiovascular: normal rate Respiratory/Chest: normal breath sounds, no respiratory distress Abdominal Exam: normal bowel sounds, non tender, soft Extremities: normal range of motion Monique Dc N.P. Jul 05, 2016 13:42
[2016-07-05] MEDS: ALPRAZolam 0.25mg tab ORAL PRN (16:48)
--- NOTE | 2016-07-05 17:39 | Pulmonology Progress Note ---
Assessment/Plan Problems: (1) Pancreatitis (2) Hypertension (3) ETOH abuse Assessment/Plan tolerating diet its ok to go home with mildly elevated sbp of 168 pt will get his prescription Subjective ROS Limited/Unobtainable: No Constitutional: Reports: no symptoms Allergies: Coded Allergies: PENICILLIN G (Unverified Allergy, Unknown, 07/02/16) PENICILLINS (Verified Allergy, Unknown, 06/29/15) Objective Last 24 Hour Vital Signs Date Time Temp Pulse Resp B/P Pulse Ox O2 Delivery O2 Flow Rate FiO2 07/05/16 16:33 99.0 122 18 168/107 99 Room Air 07/05/16 13:29 181/120 07/05/16 12:15 181/120 07/05/16 12:00 99.0 114 20 181/120 99 Room Air 07/05/16 08:31 158/98 07/05/16 08:30 103 158/98 07/05/16 08:00 98.1 103 20 158/98 99 Room Air 07/05/16 06:13 168/88 07/05/16 04:00 97.0 94 18 168/109 99 Room Air 07/05/16 00:00 98.4 99 18 160/93 99 Room Air 07/04/16 21:48 97.0 07/04/16 21:46 156/101 07/04/16 20:00 97.0 108 20 156/101 100 Room Air Intake and Output 07/04/16 07/05/16 19:00 07:00 Intake Total 900 ml 1155 ml Output Total 450 ml Balance 450 ml 1155 ml Intake Oral 480 ml IV Total 900 ml 675 ml Output Urine Total 400 ml Emesis 50 ml # Voids 3 General Appearance: no acute distress HEENT: normocephalic Respiratory/Chest: chest wall non-tender, lungs clear Cardiovascular: normal peripheral pulses, regular rhythm Abdomen: normal bowel sounds, no mass Extremities: no clubbing Skin: no lesions Microbiology Date/Time Source Procedure Growth Status 07/02/16 19:06 Urine,Clean Catch Urine Culture - Final Mixed Gram Positive Organism Complete Current Medications Medications (Trade) Dose Ordered Sig/Fátima Route PRN Reason Start Time Stop Time Status Last Admin Dose Admin Acetaminophen (Tylenol) 650 mg Q4H PRN ORAL fever 07/02/16 22:30 08/01/16 22:29 Al Hydroxide/Mg Hydroxide (Mylanta II) 30 ml Q6H PRN ORAL dyspepsia 07/02/16 22:30 08/01/16 22:29 Alprazolam (Xanax) 0.25 mg THREE TIMES A DAY PRN ORAL anxiety 07/02/16 22:30 07/09/16 22:29 07/05/16 16:48 Amlodipine Besylate (Norvasc) 10 mg DAILY ORAL 07/03/16 09:00 08/02/16 08:59 07/05/16 08:30 Clonidine HCl (Catapres) 0.1 mg Q8H PRN ORAL sbp above 160 07/03/16 09:15 08/02/16 09:14 07/05/16 12:15 Dextrose (Dextrose 50%) STAT PRN IV Hypoglycemia 07/02/16 22:30 08/01/16 22:29 Dextrose/Sodium Chloride (D5 0.45% NS) 1,000 ml @ 75 mls/hr [id number] IV 07/02/16 17:40 08/01/16 17:39 07/05/16 06:18 Diphenhydramine HCl (Benadryl Cream) 1 applic THREE TIMES A DAY PRN TOPIC Itching 07/04/16 09:00 08/03/16 08:59 07/04/16 21:48 Diphenhydramine HCl (Benadryl) 25 mg Q6H PRN ORAL Itching/Pruritis 07/02/16 22:30 08/01/16 22:29 Heparin Sodium (Porcine) (Heparin 5000 units/ml) 5,000 units EVERY 12 HOURS SUBQ 07/03/16 09:00 08/02/16 08:59 07/05/16 08:35 Hydralazine HCl (Apresoline) 50 mg Q8HR ORAL 07/03/16 14:00 08/02/16 13:59 07/05/16 13:29 Hydromorphone HCl (Dilaudid) 2 mg Q4H PRN IVP For Pain 07/03/16 11:00 07/10/16 10:59 07/05/16 13:48 Lisinopril 40 mg 40 mg DAILY ORAL 07/03/16 09:00 08/02/16 08:59 07/05/16 08:31 Nitroglycerin (Ntg) 0.4 mg Q5M X 3 DOSES PRN SL Prn Chest Pain 07/02/16 22:30 08/01/16 22:29 Ondansetron HCl (Zofran) 4 mg Q6H PRN IVP Nausea & Vomiting 07/02/16 22:30 08/01/16 22:29 07/04/16 10:36 Polyethylene Glycol (Miralax) 17 gm HSPRN PRN ORAL Constipation 07/02/16 22:30 08/01/16 22:29 Temazepam (Restoril) 15 mg HSPRN PRN ORAL Insomnia 07/02/16 22:30 07/09/16 22:29 GIOVANNI SCHILLING Jul 05, 2016 17:39
[2016-07-05] MEDS ORDERED: chlordiazePOXIDE 25mg Cap ORAL PRN (19:30)
[2016-07-06 00:45] VITALS: BP 179/105
[2016-07-06] MEDS: D5 1/2NS 1,000 ML IV SCH ×2 (02:02→10:24)
[2016-07-06 04:00] VITALS: BP_SYST 155; BP_SYST 164; BP_DIAS 103; BP_DIAS 94
[2016-07-06] MEDS: HydrALAZINE 50mg tab ORAL SCH (06:00)
[2016-07-06 08:00] VITALS: BP 156/105
[2016-07-06] MEDS: Lisinopril 20mg tab ORAL SCH (08:12)
[2016-07-06] MEDS: Heparin 5000 units/ml inj SUBQ SCH (08:18)
[2016-07-06 10:06] LABS: BASOPHILS % (AUTO) 1.5 % (0.0-2.0); EOSINOPHILS % (AUTO) 1.1 % (0.0-3.0); LYMPHOCYTES % (AUTO) 26.1 % (20.0-45.0); MEAN CORPUSCULAR HEMOGLOBIN 27.6 PG (27.0-31.0); MEAN CORPUSCULAR HGB CONC 30.5 G/DL (32.0-36.0); MEAN CORPUSCULAR VOLUME 91 FL (80-99); MEAN PLATELET VOLUME 6.6 FL (6.5-10.1); MONOCYTES % (AUTO) 5.6 % (1.0-10.0); NEUTROPHILS % (AUTO) 65.8 % (45.0-75.0); PLATELET COUNT 319 K/UL (150-450); RED BLOOD COUNT 4.69 M/UL (4.20-5.40); RED CELL DISTRIBUTION WIDTH 12.8 % (11.6-14.8); WHITE BLOOD COUNT 8.2 K/UL (4.8-10.8)
[2016-07-06 10:20] LABS: ANION GAP 14 (5-15); CALCIUM 9.5 mg/dL (8.6-10.2); CARBON DIOXIDE 26 mEQ/L (20-30); CHLORIDE 98 mEQ/L (98-107); CREATININE 0.7 mg/dL (0.5-0.9); GLOMERULAR FILTRATION RATE > 60 mL/min (>60); HEMOLYSIS 4; POTASSIUM 3.5 mEQ/L (3.4-4.9); SODIUM 138 mEQ/L (135-145)
[2016-07-06 12:00] VITALS: BP 156/98
[2016-07-06] MEDS ORDERED: D5 1/2NS 1000ml IV ONE (13:33)
--- NOTE | 2016-07-06 13:38 | GI Progress Note ---
Assessment/Plan Problems: (1) ETOH abuse ICD Codes: F10.10 - Alcohol abuse, uncomplicated SNOMED: 31684096, 15671534 (2) Anemia ICD Codes: D64.9 - Anemia, unspecified SNOMED: 629628815 (3) Hypertension ICD Codes: I10 - Essential (primary) hypertension SNOMED: 09090295 Qualifiers: Qualified Codes: I15.9 - Secondary hypertension, unspecified (4) Pancreatitis ICD Codes: K85.9 - Acute pancreatitis, unspecified SNOMED: 57445556 Qualifiers: Qualified Codes: K85.90 - Acute pancreatitis without necrosis or infection, unspecified (5) Constipation ICD Codes: K59.00 - Constipation, unspecified SNOMED: 76427731 (6) Abdominal pain ICD Codes: R10.9 - Unspecified abdominal pain SNOMED: 23547574, 111926894 Status: stable Status Narrative Discussed with Dr. Epperson. Assessment/Plan ok for DC per GI standpoint lipase WNL regular diet tolerating iv fluids pain control fu labs fu with PCP for BP mgmt Subjective Gastrointestinal/Abdominal: Reports: no symptoms Subjective utox positive for benzo + MJ >> per patient she had taken sleeping pills to relieve her pain Objective Last 24 Hour Vital Signs Date Time Temp Pulse Resp B/P Pulse Ox O2 Delivery O2 Flow Rate FiO2 07/06/16 12:00 98.4 94 20 156/98 95 Room Air 07/06/16 08:12 156/105 07/06/16 08:11 88 156/105 07/06/16 08:00 97.0 88 20 156/105 98 Room Air 07/06/16 06:00 177/103 07/06/16 04:00 98.6 85 21 155/94 97 Nasal Cannula 07/06/16 00:45 98.2 118 21 179/105 100 Room Air 07/06/16 00:05 172/102 07/05/16 22:51 154/105 07/05/16 20:30 100.4 07/05/16 20:02 158/113 07/05/16 20:00 98.1 110 20 167/120 99 Room Air 07/05/16 19:25 100.4 120 18 158/113 97 Room Air 07/05/16 16:33 99.0 122 18 168/107 99 Room Air Intake and Output 07/05/16 07/06/16 19:00 07:00 Intake Total 240 ml 690 ml Balance 240 ml 690 ml Intake Oral 240 ml 240 ml IV Total 450 ml # Voids 2 4 Laboratory Tests Test 07/06/16 09:55 White Blood Count 8.2 K/UL (4.8-10.8) Red Blood Count 4.69 M/UL (4.20-5.40) Hemoglobin 13.0 G/DL (12.0-16.0) Hematocrit 42.6 % (37.0-47.0) Mean Corpuscular Volume 91 FL (80-99) Mean Corpuscular Hemoglobin 27.6 PG (27.0-31.0) Mean Corpuscular Hemoglobin Concent 30.5 G/DL (32.0-36.0) L Red Cell Distribution Width 12.8 % (11.6-14.8) Platelet Count 319 K/UL (150-450) Mean Platelet Volume 6.6 FL (6.5-10.1) Neutrophils (%) (Auto) 65.8 % (45.0-75.0) Lymphocytes (%) (Auto) 26.1 % (20.0-45.0) Monocytes (%) (Auto) 5.6 % (1.0-10.0) Eosinophils (%) (Auto) 1.1 % (0.0-3.0) Basophils (%) (Auto) 1.5 % (0.0-2.0) Sodium Level 138 mEQ/L (135-145) Potassium Level 3.5 mEQ/L (3.4-4.9) Chloride Level 98 mEQ/L (98-107) Carbon Dioxide Level 26 mEQ/L (20-30) Anion Gap 14 (5-15) Blood Urea Nitrogen 5 mg/dL (7-23) L Creatinine 0.7 mg/dL (0.5-0.9) Estimat Glomerular Filtration Rate > 60 mL/min (>60) Glucose Level 110 mg/dL (74-106) H Calcium Level 9.5 mg/dL (8.6-10.2) Height (Feet): 5 Height (Inches): 6.00 Weight (Pounds): 131 General Appearance: no apparent distress, alert Cardiovascular: normal rate Respiratory/Chest: normal breath sounds, no respiratory distress Abdominal Exam: normal bowel sounds, non tender, soft Extremities: normal range of motion Monique Dc N.P. Jul 06, 2016 13:38
--- NOTE | 2016-07-06 16:18 | Pulmonology Progress Note ---
Assessment/Plan Problems: (1) Pancreatitis (2) Hypertension (3) ETOH abuse Assessment/Plan ok to go home with f/u with her primary MD Subjective ROS Limited/Unobtainable: No Interval Events: doing better Allergies: Coded Allergies: PENICILLIN G (Unverified Allergy, Unknown, 07/02/16) PENICILLINS (Verified Allergy, Unknown, 06/29/15) Objective Last 24 Hour Vital Signs Date Time Temp Pulse Resp B/P Pulse Ox O2 Delivery O2 Flow Rate FiO2 07/06/16 12:00 98.4 94 20 156/98 95 Room Air 07/06/16 08:12 156/105 07/06/16 08:11 88 156/105 07/06/16 08:00 97.0 88 20 156/105 98 Room Air 07/06/16 06:00 177/103 07/06/16 04:00 98.6 85 21 155/94 97 Nasal Cannula 07/06/16 00:45 98.2 118 21 179/105 100 Room Air 07/06/16 00:05 172/102 07/05/16 22:51 154/105 07/05/16 20:30 100.4 07/05/16 20:02 158/113 07/05/16 20:00 98.1 110 20 167/120 99 Room Air 07/05/16 19:25 100.4 120 18 158/113 97 Room Air 07/05/16 16:33 99.0 122 18 168/107 99 Room Air Intake and Output 07/05/16 07/06/16 19:00 07:00 Intake Total 240 ml 690 ml Balance 240 ml 690 ml Intake Oral 240 ml 240 ml IV Total 450 ml # Voids 2 4 General Appearance: WD/WN HEENT: normocephalic Respiratory/Chest: chest wall non-tender, lungs clear Cardiovascular: normal peripheral pulses, regular rhythm Abdomen: normal bowel sounds, no organomegaly Extremities: no clubbing Skin: no lesions Laboratory Tests 07/06/16 09:55: White Blood Count 8.2, Red Blood Count 4.69, Hemoglobin 13.0, Hematocrit 42.6, Mean Corpuscular Volume 91, Mean Corpuscular Hemoglobin 27.6, Mean Corpuscular Hemoglobin Concent 30.5L, Red Cell Distribution Width 12.8, Platelet Count 319, Mean Platelet Volume 6.6, Neutrophils (%) (Auto) 65.8, Lymphocytes (%) (Auto) 26.1, Monocytes (%) (Auto) 5.6, Eosinophils (%) (Auto) 1.1, Basophils (%) (Auto ) 1.5, Sodium Level 138, Potassium Level 3.5, Chloride Level 98, Carbon Dioxide Level 26, Anion Gap 14, Blood Urea Nitrogen 5L, Creatinine 0.7, Estimat Glomerular Filtration Rate > 60, Glucose Level 110H, Calcium Level 9.5 GIOVANNI SCHILLING Jul 06, 2016 16:18
--- NOTE | 2016-07-07 17:35 | Discharge Summary ---
Discharge Summary Hospital Course Date of Admission Jul 02, 2016 at 22:08 Date of Discharge Jul 06, 2016 at 13:34 Admitting Diagnosis pancreatitis HPI Tonya Johnson is a 45 year old female who was admitted on Jul 02, 2016 at 22: 08 for Pancreatitis Hospital Course [id number] Discharge Discharge Disposition Patient was discharged to Home (01) Discharge Diagnoses: Jenifer Torres NP Jul 07, 2016 17:35
--- NOTE | 2016-07-08 04:38 | Discharge Summary 2 SIG ---
DATE OF ADMISSION: 07/02/2016 DATE OF DISCHARGE: 07/06/2016 TRANSPORTATION DEPARTMENT SUPERVISOR: Norman Epperson M.D. BRIEF HOSPITAL COURSE: The patient is a 45-year-old female, who came to the ED complaining of sharp radiating pain to the back and abdomen. She reports that abdomen has been swollen. Denies nausea, vomiting, or diarrhea. Denies associated trauma or injury. The patient reports history of pancreatitis in the past. Workup in ED revealed no leukocytosis. Lipase was 154. A CT of the abdomen and pelvis revealed acute pancreatitis with no pseudocyst, no abscess, no necrosis, with fibrous uterus. The patient was admitted to medical floor and was given IV hydration. She was initially placed on NPO and was given pain management. She came in with elevated high blood pressure, systolic BP of 200 and was given blood pressure management with multiple regimen including RADHA inhibitor, calcium channel jose roberto, and hydralazine. Dr. Epperson was consulted. The patient was started on clear liquids. Abdominal ultrasound was negative. Diet was eventually advanced. Amylase and lipase normalized. The patient was eventually discharged home to follow up with her primary doctor. FINAL DIAGNOSES: 1. Acute pancreatitis. 2. Hypertensive emergency. 3. Ethyl alcohol abuse. 4. Constipation. 5. Anemia. 6. Marijuana use. Mateo Thompson M.D. I have been assigned to dictate discharge summary on this account and I was not involved in the patient's management. Jenifer Torres N.P. DR: AD JOB#: [id number] CC: PROMISE
== END 2016-07-06 13:34 | disposition home or self-care (01) | DRG 282 ==
LOC: EDBD 17:51 → EMR 18:15 → EDBEDREQ 21:26 → 3E 22:08
DX: K85.90 Acute pancreatitis without necrosis or infection, unspecified (principal); I16.1 Hypertensive emergency; D64.9 Anemia, unspecified; K59.00 Constipation, unspecified; F10.10 Alcohol abuse, uncomplicated; F12.90 Cannabis use, unspecified, uncomplicated; Z88.0 Allergy status to penicillin
CPT/HCPCS: 36415; 74177; 76700; 80048; 80053; 80061; 80300; 81003; 82150; 83690; 85025; 85730; 87086; J2405

== ENCOUNTER 2019-01-14 15:31 | Emergency (ER) | payer MEDICAID ==
[~2019-01-14] VITALS: Ht 167.6 cm; Wt 81.6 kg
[2019-01-14] MEDS ORDERED: Isovue-300 100ml vial INJ PRN (16:00)
--- NOTE | 2019-01-14 16:08 | NUR ---
ED Nurse Note: Patient presents to abdominal distension and left sided abdominal pain that radiates to all over the body x 2 days; Reports no N/V at this time. Reports no heavy alcohol consumption. Patient awake, alert, oriented x 4. Regular, unlabored breathing noted. Slight cloudy, yellow urine collected.
[2019-01-14] MEDS ORDERED: Morphine Sulfate 4mg/ml Inj (IV USE ONLY) IVP ONE ×2 (16:15→18:00)
[2019-01-14 16:35] LABS: BASOPHILS % (AUTO) 1.3 % (0.0-2.0); EOSINOPHILS % (AUTO) 1.8 % (0.0-3.0); HEMATOCRIT 42.8 % (37.0-47.0); HEMOGLOBIN 13.5 G/DL (12.0-16.0); MEAN CORPUSCULAR VOLUME 88 FL (80-99); NEUTROPHILS % (AUTO) 64.9 % (45.0-75.0); PLATELET COUNT 374 K/UL (150-450); RED BLOOD COUNT 4.86 M/UL (4.20-5.40); RED CELL DISTRIBUTION WIDTH 12.9 % (11.6-14.8); WHITE BLOOD COUNT 8.9 K/UL (4.8-10.8)
[2019-01-14 16:40] LABS: ANION GAP 9 mmol/L (5-15); BLOOD UREA NITROGEN 18 mg/dL (7-18); CALCIUM 9.6 MG/DL (8.5-10.1); CARBON DIOXIDE 26 MMOL/L (21-32); CHLORIDE 104 MMOL/L (98-107); CREATININE 0.9 MG/DL (0.55-1.30); POTASSIUM 4.6 MMOL/L (3.5-5.1); SODIUM 139 MMOL/L (136-145)
[2019-01-14 16:42] LABS: APPEARANCE,URINE CLEAR; BILIRUBIN, URINE NEGATIVE (NEGATIVE); COLOR,URINE PALE YELLOW; GLUCOSE, URINE (UA) NEGATIVE (NEGATIVE); KETONES,URINE NEGATIVE (NEGATIVE); LEUKOCYTE ESTERASE ,URINE NEGATIVE (NEGATIVE); NITRITE,URINE NEGATIVE (NEGATIVE); PH,URINE 6 (4.5-8.0); PROTEIN,URINE NEGATIVE (NEGATIVE); UROBILINOGEN,URINE NORMAL MG/DL (0.0-1.0)
--- NOTE | 2019-01-14 16:46 | Diagnostic Imaging Report ---
Indication: Chest pain Comparison: None A single view chest radiograph was obtained. Findings: Cardiomediastinal appearance is within normal limits for age. The lungs are clear. Pulmonary vascularity is appropriate. The diaphragmatic contour is smooth and costophrenic angles are sharp. No pleural effusions are identified. The bones are unremarkable. Impression: No acute findings
[2019-01-14 16:50] LABS: INR 0.9 (0.9-1.1)
[2019-01-14 16:52] LABS: ALANINE AMINOTRANSFERASE 20 U/L (12-78); ALBUMIN 3.9 G/DL (3.4-5.0); ALBUMIN/GLOBULIN RATIO 0.9 (1.0-2.7); ALKALINE PHOSPHATASE 80 U/L (46-116); ASPARTATE AMINO TRANSFERASE 23 U/L (15-37); BILIRUBIN,TOTAL 0.3 MG/DL (0.2-1.0); CKMB 0.5 NG/ML (0.0-3.6); CREATINE KINASE 113 U/L (26-308)
--- NOTE | 2019-01-14 17:14 | NUR ---
ED Nurse Note: Patient returned from CT scan.
[2019-01-14 17:25] VITALS: BP 155/80
--- NOTE | 2019-01-14 17:27 | Diagnostic Imaging Report ---
Indication: Abdominal pain Technique: Continuous helical transaxial imaging of the abdomen and pelvis was obtained from the lung bases to the pubic symphysis during intravenous contrast administration. Coronal 2-D reformats were also obtained. Study obtained in a Siemens sensation [address] Automatic Exposure Control was utilized. Total Dose length Product (DLP): 1037.[address] Dose Index Volume (CTDIvol): 18.6 mGy Comparison: None Findings: Lung bases are clear. Solid organs are unremarkable. Gallbladder is unremarkable. There is no hydronephrosis, free fluid or evidence of bowel obstruction. Diverticulosis of the colon noted on the left side. The appendix is normal. There is a mass projecting off the uterine fundus likely a fibroid measuring about 4 cm. The urinary bladder is unremarkable. IMPRESSION: No acute findings. 4 cm Uterine fibroid Minimal diverticulosis of the colon. No definite evidence of acute diverticulitis. The CT scanner at [facility] is accredited by the [employer] and the scans are performed using dose optimization techniques as appropriate to a performed exam including Automatic Exposure control.
--- NOTE | 2019-01-14 17:41 | NUR ---
Note steve in EDM - 01/14/19 at 1745 by LOUIE ED Nurse Note: Patient reseting in bed. No facial grimacing or guarding noted. Bed in lowest position.
--- NOTE | 2019-01-14 17:45 | NUR ---
ED Nurse Note: Patient resting in bed, reading book. No facial grimacing or guarding noted. Bed in lowest position.
[2019-01-14] MEDS ORDERED: Morphine Sulfate 2mg/ml Inj(IV/IM USE ONLY) IVP ONE (19:15)
--- NOTE | 2019-01-14 19:18 | NUR ---
ED Nurse Note: Report given to JASMIN Del Valle.
--- NOTE | 2019-01-14 19:26 | Emergency Room Report ---
History of Present Illness General Chief Complaint: Abdominal Pain Present Illness HPI 48-year-old female with history of pancreatitis here complaining of 10 out of 10 diffuse abdominal pain x2 days. Patient reports she has had abdominal distention, constipation, and few bouts of nonbloody emesis. Patient denies any alcohol intake however is a tobacco smoker. Denies any drug use. Patient was at [facility] 2 years ago for similar symptoms her lipase was above 100 however she was admitted only for a couple days and discharged with dietary modifications. No history of gallstones. No history of abdominal surgeries. Patient reports that she is under a lot of stress also recently traveled to [facility] and it did more smoking than usual. Denies chest pain, shortness of breath, palpitation, fever and chills, and all other associated symptoms. Denies urinary symptoms. Has been taking Aleve for pain with minimal relief. Allergies: Coded Allergies: PENICILLIN G (Unverified Allergy, Unknown, 07/02/16) PENICILLINS (Verified Allergy, Unknown, 06/29/15) Patient History Past Medical History: see triage record Past Surgical History: unable to obtain Pertinent Family History: none Social History: Reports: smoking Last Menstrual Period: menopause Now: No Immunizations: UTD Nursing Documentation-PMH Hx Cardiac Problems: No Hx Hypertension: Yes Hx Asthma: Yes - when I was 15; given first tx regimen Hx Cancer: No Hx Neurological Problems: No Review of Systems All Other Systems: negative except mentioned in HPI Physical Exam Vital Signs Date Time Temp Pulse Resp B/P (MAP) Pulse Ox O2 Delivery O2 Flow Rate FiO2 01/14/19 15:48 99.0 99 16 189/120 (143) 98 Room Air Sp02 EP Interpretation: reviewed, normal General Appearance: alert, GCS 15, moderate distress Head: normocephalic, atraumatic Eyes: bilateral eye normal inspection, bilateral eye PERRL ENT: normal ENT inspection, hearing grossly normal, normal pharynx Neck: normal inspection, full range of motion, supple, thyroid normal, no carotid bruits Respiratory: normal inspection, chest non-tender, lungs clear, normal breath sounds, no rhonchi, no respiratory distress Cardiovascular #1: normal inspection, regular rate, rhythm, no edema, no gallop , no murmur, normal capillary refill Gastrointestinal: no pulsatile mass, distended, guarding - LUQ and epigastric Genitourinary: no CVA tenderness Musculoskeletal: normal inspection, back normal, digits/nails normal Neurologic: normal inspection, alert, oriented x3 Psychiatric: normal inspection, judgement/insight normal, memory normal Skin: no rash, palpation normal Lymphatic: normal inspection, no adenopathy Medical Decision Making PA Attestation All diagnoses and treatment plans were reviewed and discussed with my supervising physician Dr. Samaniego Diagnostic Impression: Primary Impression: Pancreatitis ER Course 48-year-old female with history of pancreatitis here complaining of 10 out of 10 diffuse abdominal pain x2 days. Patient reports she has had abdominal distention, constipation, and few bouts of nonbloody emesis. Patient denies any alcohol intake however is a tobacco smoker. Denies any drug use. Patient was at [facility] 2 years ago for similar symptoms her lipase was above 100 however she was admitted only for a couple days and discharged with dietary modifications. No history of gallstones. No history of abdominal surgeries. Patient reports that she is under a lot of stress also recently traveled to [facility] and it did more smoking than usual. Denies chest pain, shortness of breath, palpitation, fever and chills, and all other associated symptoms. Denies urinary symptoms. Has been taking Aleve for pain with minimal relief. Ddx considered but are not limited to: appendicitis, cholecystis, gastritis, gastroenteritis, UTI, pyelonephritis, SBO, diverticulitis, influenza with GI manifestation, DC, complication with , acute pancreatitis Vital signs: are WNL, pt. is afebrile H&PE are most consistent with: Pancreatitis ORDERS: abdominal CT, abdominal pain set, EKG, ED INTERVENTIONS: IV fluids, Zofran, morphine hydralazine Patient was admited with diagnosis of pancreatitis to Dr. Quigley under supervision of : Aden pt stable at time of admission Lipase is 1855 EKG Diagnostic Results Rate: normal Rhythm: NSR Chest X-Ray Diagnostic Results Chest X-Ray Diagnostic Results : Chest X-Ray Ordered: Yes # of Views/Limited/Complete: 1 View Indication: Other EP Interpretation: Yes PA Xray: Interpretation reviewed, by supervising MD, and agrees with findings. Interpretation: no consolidation, no effusion, no pneumothorax Impression: No acute disease Electronically Signed by: Jessica Greer PA-C CT/MRI/US Diagnostic Results CT/MRI/US Diagnostic Results : Imaging Test Ordered: CT abdomen pelvis with contrast Impression No signs of pancreatitis, no abscess noted Last Vital Signs Date Time Temp Pulse Resp B/P (MAP) Pulse Ox O2 Delivery O2 Flow Rate FiO2 01/14/19 17:25 97.8 78 17 155/80 99 Room Air Disposition: XFER [facility] Condition: Stable Referrals: [facility]ERR[facility] (PCP) Patient Instructions: Acute Pancreatitis, Acute Pancreatitis, [id number] Jessica Morrow Jan 14, 2019 19:26
[2019-01-14 19:53] VITALS: BP 156/92
--- NOTE | 2019-01-14 19:53 | NUR ---
ER DISCHARGE NOTE: Patient is cleared to be Transferred per ERMD, pt is aox4, on room air, with stable vital signs. Patient was accompanied by ambulance personnel, Report given to JASMIN Domínguez
--- NOTE | 2019-01-16 18:38 | Cardiology Report ---
APPROVED REPORT EKG Measurement Heart [id number] Normal sinus rhythm Possible Left atrial enlargement Borderline ECG
== END 2019-01-14 19:53 | disposition short-term general hospital (02) ==
LOC: EMR 16:50
DX: K85.90 Acute pancreatitis without necrosis or infection, unspecified (principal); Z88.0 Allergy status to penicillin; I10 Essential (primary) hypertension; J45.909 Unspecified asthma, uncomplicated; F17.200 Nicotine dependence, unspecified, uncomplicated
CPT/HCPCS: 36415; 71045; 74177; 80053; 80307; 80329; 81003; 81025; 82550; 82553; 83690; 84484; 85025; 85610; 85730; 86850; 86900; 86901; 93005; 96361; 96374; 96375; 96376; 99285; J0360; J2270; J2405; Q9967; S0028